=== PATIENT | female | born 1985 | race Caucasian/White ===

== ENCOUNTER 2020-05-21 06:47 | Inpatient (IN) | payer OTHER ==
[~2020-05-21] VITALS: Ht 154.9 cm; Wt 75.0 kg
[2020-05-21] VITALS (40 sets, daily range): BP systolic 104–150; BP diastolic 55–80; PULSE 61–93; TEMP 97.4–98.2
[~2020-05-21 06:47] MED LIST changes: -IBU600 MG PO; -NATURAL IRON65 MG
--- NOTE | 2020-05-21 07:00 | NUR ---
0700-39.4 week G3L1 patient of Dr. Pierce' ambulatory to LR5 for scheduled induction of labor. Patient denies LOF or VB. Reports GFM. Reviewed plan of care and answered questions about induction process. Patient Very nervous about process as she wants to try to have an unmedicated . IV to left wrist per Belkis,cobol programmer nurse. Patient becomes nauseated and dizzy after placement. Cool rag to forehead and fan on. VSS. Assessment complete. Consents reviewed and signed. 0755-SVE by this RN /-2, ABBY. Unchanged from last office visit. 0800-Pit per orders, see EMAR.
[2020-05-21 07:36] LABS: BASO # 0.1 (0.0-0.2); BASO % 0.4 % (0.0-2.0); EOS # 0.1 (0.0-0.7); EOS % 0.9 % (0-4.0); GRAN # 9.4 (1.4-6.5); GRAN % 77.1 % (42.2-75.2); HEMATOCRIT 32.8 % (37.0-47.0); HEMOGLOBIN 10.4 g/dl (12.5-16.0); LYMPH # 1.7 (1.2-3.4); LYMPH % 14.2 % (20.0-51.0); MEAN CELL VOLUME 87 fl (80.0-100.0); MEAN CORPUSCULAR HEMOGLOBIN 28 pg (27.0-31.0); MEAN CORPUSCULAR HGB CONC 32 g/dl (33.0-37.0); MEAN PLATELET VOLUME 13.4 fl (7.4-10.4); MONO # 0.8 (0.1-0.6); MONO % 6.3 % (1.7-9.3); PLATELET COUNT 211 K/mm3 (130-400); RED BLOOD COUNT 3.78 M/mm3 (4.10-5.30); REDCELL DISTRIBUTION WIDTH-CV 13.4 % (11.5-14.5)
[2020-05-21 07:45] LABS: TRICYCLIC ANTIDEPRESS URINE NEGATIVE
[2020-05-21] MEDS ORDERED: NATURAL IRON65 MG (07:48)
--- NOTE | 2020-05-21 09:50 | NUR ---
0950-Dr. Pierce to unit reviews FHR monitor and chart. In to see patient. 1000-SVE by gene RN /2, AROM at this time by clear fluid noted.
--- NOTE | 2020-05-21 10:50 | NUR ---
1050-Patient up to bathroom. 1100-back to bedside standing. 1120-Back to bathroom. Reports need to pass bowel movement. 1130-Back to bed and desires knee chest position. Difficulty tracing FHR due to numerous position changes. RN frequently adjusting FHR monitor. Patient back to sitting on bed cross leg.
--- NOTE | 2020-05-21 13:20 | NUR ---
1320-DENISE Veloz to patient room per patient request for epidural. Patient sits up to bedside for epidural placement. 1330-Test dose administered by DENISE Veloz. Patient tolerates well. See anesthesia record. Repositioned WR 1420-Marks to DD, clear yellow urine return. SVE /-1. Updated MD. see physician notification.
--- NOTE | 2020-05-21 15:25 | NUR ---
1525-Patient 10100/+1, Updated MD and recieved orders to start pushing. 1547-Patient pushes with this RN, Moves vertex well. 1600-Dr. Pierce on unit. Begins pushing with patient. Patient continues to move vertex well. 1631-Spontaneous delivery of head immediately followed by body. Viable male infant to mothers abodmen. Care of infant assumed by GHULAM Lara. Cord clamped x2 and cut by FOB. Apgars 9//9. 1634-Spontaneous delivery of intact placenta by Dr. Pierce. Fundal massge firm. Lochia WNL. EBL 200ml. Pitocin bolus per MD orders and protocol. First degree perineal and bilateral labial lac repaired by MD. An care provided. Updated patient on plan of care and safety.
--- NOTE | 2020-05-21 19:45 | NUR ---
Pt up to the bathroom with standby assist and without complications. Pt was able to void. An-care done. Pt transferred to room 214 ambulatory. Oriented to room, bed and call light within reach. Plan of care reviewed.
[2020-05-22 00:15] VITALS: BP 123/80; PULSE 76; TEMP 98.1
[2020-05-22 05:00] VITALS: BP 97/55; PULSE 85; TEMP 97.9
[2020-05-22 07:18] VITALS: BP 115/46; PULSE 78; TEMP 97.5
--- NOTE | 2020-05-22 09:46 | NUR ---
Initial visit attempt; Family resting, Damper Worker left card of congratulations for the of their son and information regarding the availability of spiritual care at our hospital.
[2020-05-22 16:30] VITALS: BP 123/72; PULSE 65; TEMP 98.1
[2020-05-22 20:30] VITALS: BP 111/64; PULSE 76; TEMP 97.8
[2020-05-23 00:15] VITALS: BP 119/68; PULSE 72; TEMP 98
[2020-05-23 07:45] VITALS: BP 105/59; PULSE 67; TEMP 98.2
[2020-05-23] MEDS ORDERED: IBU600 MG PO (09:16)
== END 2020-05-23 12:45 | disposition home or self-care (01) | DRG 807 ==
LOC: OB 06:47 → LDR 06:48 → OB 08:52
PROVIDERS: ADMIT Obstetrics & Gynecology
PROC: 10E0XZZ Delivery of Products of Conception, External Approach (ICD-10-PCS; principal; 2020-05-21)
PROC: 10907ZC Drainage of Amniotic Fluid, Therapeutic from Products of Conception, Via Natural or Artificial Opening (ICD-10-PCS; 2020-05-21)
PROC: 3E033VJ Introduction of Other Hormone into Peripheral Vein, Percutaneous Approach (ICD-10-PCS; 2020-05-21)
PROC: 0HQ9XZZ Repair Perineum Skin, External Approach (ICD-10-PCS; 2020-05-21)
PROC: 0UQMXZZ Repair Vulva, External Approach (ICD-10-PCS; 2020-05-21)
DX: O99.02 Anemia complicating childbirth (principal); Z37.0 Single live birth; O70.0 First degree perineal laceration during delivery; D64.9 Anemia, unspecified; Z3A.39 39 weeks gestation of pregnancy; O99.824 Streptococcus B carrier state complicating childbirth
CPT/HCPCS: J2405; J2540; J2590; J7120

== ENCOUNTER → 2020-05-21 | Outpatient (CLI) | payer OTHER ==
[~2020-05-21] MED LIST: IBU600 MG PO; MOTRIN 600600 MG/TAB PO; NATURAL IRON65 MG; PRENATAL1 TA7 PO
== END ==
LOC: ZCOL.LAB
DX: Z20.822 Contact with and (suspected) exposure to COVID-19 (principal)